=== PATIENT | male | born 1965 | race Caucasian/White ===

== ENCOUNTER 2020-10-08 14:49 | Emergency (ER) | payer OTHER ==
[~2020-10-08] VITALS: Ht 182.9 cm; Wt 111.1 kg
[~2020-10-08 14:49] MED LIST: ALBIPROI INH; AMOX500 PO; AZIT250 PO; CLOBET30L TP; CLOT1TC TOP; DOXY100 PO; ERYT.5TO RIGHTEYE; HYDACE5 PO; HYDGUAL120 PO; Norco 5-325 Ta1 EACH PO; PENVK500 PO; RXHYDACE PO; RXTRAM50 PO
== END 2020-10-08 17:05 | disposition home or self-care (01) ==
LOC: ER 14:49
DX: S67.192A Crushing injury of right middle finger, initial encounter (principal); S62.634B Displaced fracture of distal phalanx of right ring finger, initial encounter for open fracture; F17.200 Nicotine dependence, unspecified, uncomplicated; Z92.89 Personal history of other medical treatment; Z99.0 Dependence on aspirator; W23.0XXA Caught, crushed, jammed, or pinched between moving objects, initial encounter
CPT/HCPCS: 73130; 99283; A9270